=== PATIENT | male | born 1930 | race Caucasian/White ===

== ENCOUNTER 2016-09-24 12:07 | Inpatient (IN) | payer OTHER, BC ==
[2016-09-24] VITALS (8 sets, daily range): BP systolic 85–189; BP diastolic 50–71
[~2016-09-24] VITALS: Ht 172.7 cm; Wt 94.2 kg
[2016-09-24 13:17] LABS: HEMATOCRIT 32.8 % (38.0-50.0); MCH 33.1 PG (29.0-34.0); MCHC 32.3 G/DL (30.0-36.0); MCV 102.5 FL (86-99); MEAN PLAT.VOLUME 11.7 uM^3 (9.0-12.4); PLATELET COUNT 107 K/uL (156-360); RBC DIS.WIDTH-CV 15.9 % (11.8-14.6); WHITE BLOOD COUNT 6.8 K/uL (4.1-10.2)
[2016-09-24 13:20] LABS: CHLORIDE 115 mEq/L (99-109); POTASSIUM 4.8 mEq/L (3.7-5.4); SODIUM 144 mEq/L (136-147)
[2016-09-24 13:22] LABS: GLUCOSE 130 mg/dL (70-99)
[2016-09-24 13:23] LABS: ANION GAP 8 MEQ/L (2-14)
[2016-09-24 13:24] LABS: PROTHROMBIN TIME 10.3 (9.2-11.2); PTT 25.4 (25-32)
[2016-09-24 13:26] LABS: GFR ESTIMATE (CALCULATED) 38 mL/min/
[2016-09-24 13:27] LABS: UREA NITROGEN (BUN) 46 mg/dL (9-23)
[2016-09-24] MEDS ORDERED: LEVO-T50 MCG PO (15:50)
[2016-09-24] MEDS ORDERED: LOW DOSE ASPIRI81 M1 PO (16:05)
[2016-09-24] MEDS ORDERED: LIPITOR80 MG PO (16:06)
[2016-09-24] MEDS ORDERED: TOPROL XL25 MG PO (16:06)
[2016-09-24] MEDS ORDERED: LASIX20 MG PO (16:07)
[2016-09-24] MEDS ORDERED: K-DUR10 MEQ PO (16:09)
[2016-09-24] MEDS ORDERED: HYTRIN5 MG PO (16:09)
[2016-09-24] MEDS ORDERED: PROSCAR5 MG PO (16:10)
[2016-09-24] MEDS ORDERED: REMERON15 M2 PO (16:10)
[2016-09-24] MEDS ORDERED: XALATAN2.5 ML BOTH EYES (16:11)
[2016-09-24] MEDS ORDERED: PROTONIX40 MG PO (16:11)
[2016-09-24] MEDS ORDERED: DITROPAN XL10 MG PO (16:11)
[2016-09-24] MEDS ORDERED: DAILY VALUE1 EACH PO (16:12)
[2016-09-24] MEDS ORDERED: ALLOPURINOL300 MG PO (16:12)
[2016-09-24 18:48] LABS: HEMATOCRIT 32.8 % (38.0-50.0); MCV 104.1 FL (86-99)
[2016-09-24 19:15] LABS: TROP-I INTERPRETATION NEGATIVE
[2016-09-24 19:25] LABS: TROPONIN-I 0.01 ng/mL (0.0-0.30)
[2016-09-24 19:49] LABS: ADD MIUA? YES; BILIRUBIN NEGATIVE; BLOOD NEGATIVE; COLOR YELLOW ((YELLOW)); GLUCOSE (STRIP) NEGATIVE; KETONES NEGATIVE; LEUKOCYTES NEGATIVE; NITRITE NEGATIVE; PROTEIN (STRIP) 100; SPECIFIC GRAVITY 1.015 (1.000-1.030); UROBILINOGEN 0.2 MG/DL (0.2-1.0)
[2016-09-24 19:56] LABS: BACTERIA NONE SEEN /HPF; EPITHELIAL CELLS RARE /HPF; HYALINE CASTS 0-5 /LPF; MUCUS TRACE /LPF; RED BLOOD CELLS 0-5 /HPF (0-5); WHITE BLOOD CELLS 0-5 /HPF (0-5)
[2016-09-24 22:18] LABS: METH RESISTANT S AUREUS PCR NEGATIVE (NEGATIVE)
[2016-09-24 22:32] LABS: PROBE CHECK PASS; SPECIMEN PROCESSING CONTROL PASS
[2016-09-24 23:43] LABS: POINT-OF-CARE METER ID UU14162636
[2016-09-25] VITALS (13 sets, daily range): BP systolic 102–172; BP diastolic 37–52
[2016-09-25 01:32] LABS: TROP-I INTERPRETATION NEGATIVE; TROPONIN-I 0.04 ng/mL (0.0-0.30)
[2016-09-25 06:04] LABS: POINT-OF-CARE METER ID UU14162636
[2016-09-25 06:48] LABS: TROP-I INTERPRETATION NEGATIVE; TROPONIN-I 0.06 ng/mL (0.0-0.30)
[2016-09-25 06:49] LABS: INTER. NORMALIZED RATIO 1.1; PROTHROMBIN TIME 11.4 (9.2-11.2); PTT 30.3 (25-32)
[2016-09-25 07:00] LABS: HEMATOCRIT 29.9 % (38.0-50.0); MCH 34.9 PG (29.0-34.0); MCHC 33.1 G/DL (30.0-36.0); MCV 105.3 FL (86-99); RBC DIS.WIDTH-CV 15.8 % (11.8-14.6); RED BLOOD COUNT 2.84 M/uL (4.00-5.50)
[2016-09-25 07:07] LABS: MEAN PLAT.VOLUME 10.5 uM^3 (9.0-12.4); PLAT.SUFFICIENCY DECREASED; PLATELET COUNT 74 K/uL (156-360)
[2016-09-25 07:13] LABS: ANION GAP 6 MEQ/L (2-14); CHLORIDE 117 MEQ/L (99-109); GFR ESTIMATE (CALCULATED) 41 mL/min/; POTASSIUM 4.4 MEQ/L (3.7-5.4); SAMPLE HEMOLYSIS CHECK 0; SAMPLE ICTERIC CHECK 0; SAMPLE LIPEMIA CHECK 0; SODIUM 145 MEQ/L (136-147); UREA NITROGEN (BUN) 40 mg/dL (9-23)
[2016-09-25 07:15] LABS: GLUCOSE 94 mg/dL (70-99)
[2016-09-25 12:08] LABS: POINT-OF-CARE METER ID UU14162636
[2016-09-25 18:11] LABS: POINT-OF-CARE METER ID UU14174217
[2016-09-26 01:00] LABS: POINT-OF-CARE METER ID UU13113675
[2016-09-26 04:05] VITALS: BP 141/65
[2016-09-26 06:10] VITALS: BP 105/78
[2016-09-26 07:06] LABS: HEMATOCRIT 30.1 % (38.0-50.0); MCV 106.4 FL (86-99)
[2016-09-26 07:39] LABS: ANION GAP 9 MEQ/L (2-14); CHLORIDE 115 MEQ/L (99-109); POTASSIUM 5.1 MEQ/L (3.7-5.4); SAMPLE HEMOLYSIS CHECK 0; SAMPLE ICTERIC CHECK 0; SAMPLE LIPEMIA CHECK 0; SODIUM 145 MEQ/L (136-147)
[2016-09-26 07:45] LABS: GFR ESTIMATE (CALCULATED) 34 mL/min/; GLUCOSE 122 mg/dL (70-99); UREA NITROGEN (BUN) 45 mg/dL (9-23)
[2016-09-26 07:47] VITALS: BP 148/67
[2016-09-26 11:43] VITALS: BP 138/65
[2016-09-26 16:01] VITALS: BP 146/60
[2016-09-26 16:20] LABS: POINT-OF-CARE METER ID UU14188577
[2016-09-26 20:40] VITALS: BP 159/67
[2016-09-27] VITALS (7 sets, daily range): BP systolic 110–177; BP diastolic 52–69
[2016-09-27 06:57] LABS: EOSINOPHIL COUNT 0.1 K/uL (0-0.3); HEMATOCRIT 25.4 % (38.0-50.0); IMMATURE GRANULOCYTE (%) 0.6 % (0.0-0.7); INSTRUMENT ABS NEUTROPHIL CT 5.8 K/uL; LYMPHOCYTE COUNT 0.5 K/uL (1.0-2.8); MCH 34.4 PG (29.0-34.0); MCHC 33.1 G/DL (30.0-36.0); MCV 104.1 FL (86-99); MEAN PLAT.VOLUME 11.7 uM^3 (9.0-12.4); MONOCYTE (%) 7.1 % (3-12); MONOCYTE COUNT 0.5 K/uL (0-0.8); NEUTROPHIL (%) 83.8 % (45-76); NEUTROPHIL COUNT 5.8 K/uL (1.8-6.4); PLATELET COUNT 65 K/uL (156-360); RBC DIS.WIDTH-CV 15.9 % (11.8-14.6); RED BLOOD COUNT 2.44 M/uL (4.00-5.50); WHITE BLOOD COUNT 6.9 K/uL (4.1-10.2)
[2016-09-27 07:16] LABS: ANION GAP 8 MEQ/L (2-14); CHLORIDE 116 MEQ/L (99-109); GFR ESTIMATE (CALCULATED) 36 mL/min/; GLUCOSE 120 mg/dL (70-99); POTASSIUM 4.1 MEQ/L (3.7-5.4); SAMPLE HEMOLYSIS CHECK 0; SAMPLE ICTERIC CHECK 0; SAMPLE LIPEMIA CHECK 0; SODIUM 143 MEQ/L (136-147); UREA NITROGEN (BUN) 45 mg/dL (9-23)
[2016-09-27 12:28] LABS: POINT-OF-CARE METER ID UU14188577
[2016-09-28 03:37] LABS: BASE EXCESS -3.9 mEq/L (-3 to +3); BICARBONATE 20.4 mEq/L (22-26); CARBOXY HGB 1.7 % (0-5); METHEMOGLOBIN 1.4 % (0-1.5); PCO2 33 mm Hg (35-45); PO2 78 mm Hg (80-100)
[2016-09-28 03:38] LABS: COMMENTS - BLOOD GASES C+; DEVICE HFNC; O2 FLOW 15 L/MIN; SITE LR; TOTAL RESP RATE 16 resp/min
[2016-09-28 03:53] VITALS: BP 133/58
[2016-09-28 06:20] LABS: POINT-OF-CARE METER ID UU14188577
[2016-09-28 07:23] LABS: EOSINOPHIL (%) 2.8 % (0-5); EOSINOPHIL COUNT 0.2 K/uL (0-0.3); HEMATOCRIT 26.1 % (38.0-50.0); IMMATURE GRANULOCYTE (%) 0.6 % (0.0-0.7); INSTRUMENT ABS NEUTROPHIL CT 5.5 K/uL; LYMPHOCYTE COUNT 0.4 K/uL (1.0-2.8); MCH 33.5 PG (29.0-34.0); MCHC 32.2 G/DL (30.0-36.0); MEAN PLAT.VOLUME 12.5 uM^3 (9.0-12.4); MONOCYTE (%) 7.6 % (3-12); MONOCYTE COUNT 0.5 K/uL (0-0.8); NEUTROPHIL (%) 82.5 % (45-76); NEUTROPHIL COUNT 5.5 K/uL (1.8-6.4); PLATELET COUNT 76 K/uL (156-360); RBC DIS.WIDTH-CV 16.1 % (11.8-14.6); RBC DIS.WIDTH-SD 61.6 % (39-53); RED BLOOD COUNT 2.51 M/uL (4.00-5.50); WHITE BLOOD COUNT 6.7 K/uL (4.1-10.2)
[2016-09-28 07:47] VITALS: BP 133/58
[2016-09-28 07:56] LABS: ALKALINE PHOSPHATASE 60 IU/L (3-129); ANION GAP 11 MEQ/L (2-14); CHLORIDE 118 MEQ/L (99-109); GFR ESTIMATE (CALCULATED) 36 mL/min/; GLUCOSE 108 mg/dL (70-99); SAMPLE HEMOLYSIS CHECK 0; SAMPLE ICTERIC CHECK 0; SAMPLE LIPEMIA CHECK 0; SODIUM 147 MEQ/L (136-147); TOTAL BILIRUBIN 0.6 MG/DL (0.0-1.0); UREA NITROGEN (BUN) 40 mg/dL (9-23)
[2016-09-28 11:31] VITALS: BP 160/69
[2016-09-28 13:20] LABS: ADD MIUA? YES; BILIRUBIN NEGATIVE; BLOOD LARGE; COLOR YELLOW ((YELLOW)); GLUCOSE (STRIP) NEGATIVE; KETONES NEGATIVE; LEUKOCYTES NEGATIVE; NITRITE NEGATIVE; PROTEIN (STRIP) 100; SPECIFIC GRAVITY 1.017 (1.000-1.030); UROBILINOGEN 0.2 MG/DL (0.2-1.0)
[2016-09-28 13:35] LABS: BACTERIA 1+ /HPF; CASTS PRESENT /LPF; COARSE GRANULAR CASTS 0-5 /LPF; EPITHELIAL CELLS 1+ /HPF; MUCUS NONE SEEN /LPF; UCUL ADDED? NO; WHITE BLOOD CELLS 0-5 /HPF (0-5)
[2016-09-28 16:09] LABS: POINT-OF-CARE METER ID UU14149397
[2016-09-28 19:35] VITALS: BP 173/78
[2016-09-28 23:36] VITALS: BP 172/80
[2016-09-29 03:53] VITALS: BP 177/68
[2016-09-29 07:34] LABS: EOSINOPHIL (%) 1.2 % (0-5); EOSINOPHIL COUNT 0.1 K/uL (0-0.3); HEMATOCRIT 25.1 % (38.0-50.0); IMMATURE GRANULOCYTE (%) 0.6 % (0.0-0.7); INSTRUMENT ABS NEUTROPHIL CT 5.6 K/uL; LYMPHOCYTE COUNT 0.4 K/uL (1.0-2.8); MCH 33.6 PG (29.0-34.0); MCHC 32.3 G/DL (30.0-36.0); MCV 104.1 FL (86-99); MONOCYTE (%) 8.3 % (3-12); MONOCYTE COUNT 0.6 K/uL (0-0.8); NEUTROPHIL (%) 84.1 % (45-76); NEUTROPHIL COUNT 5.6 K/uL (1.8-6.4); PLATELET COUNT 75 K/uL (156-360); RBC DIS.WIDTH-CV 15.9 % (11.8-14.6); RBC DIS.WIDTH-SD 61.4 % (39-53); RED BLOOD COUNT 2.41 M/uL (4.00-5.50); WHITE BLOOD COUNT 6.6 K/uL (4.1-10.2)
[2016-09-29 07:42] VITALS: BP 167/72
[2016-09-29 08:00] LABS: ALKALINE PHOSPHATASE 75 IU/L (3-129); ANION GAP 10 MEQ/L (2-14); CHLORIDE 120 MEQ/L (99-109); GFR ESTIMATE (CALCULATED) 36 mL/min/; GLUCOSE 96 mg/dL (70-99); POTASSIUM 3.9 MEQ/L (3.7-5.4); SAMPLE HEMOLYSIS CHECK 0; SAMPLE ICTERIC CHECK 0; SAMPLE LIPEMIA CHECK 0; SODIUM 150 MEQ/L (136-147); TOTAL BILIRUBIN 0.6 MG/DL (0.0-1.0); UREA NITROGEN (BUN) 46 mg/dL (9-23)
[2016-09-29 16:19] VITALS: BP 142/62
[2016-09-29 19:45] VITALS: BP 160/73
[2016-09-29 23:15] VITALS: BP 164/74
[2016-09-30] VITALS (7 sets, daily range): BP systolic 132–194; BP diastolic 62–82
[2016-09-30 06:37] LABS: POINT-OF-CARE METER ID UU14188577
[2016-09-30 07:08] LABS: EOSINOPHIL (%) 2.5 % (0-5); EOSINOPHIL COUNT 0.2 K/uL (0-0.3); HEMATOCRIT 25.5 % (38.0-50.0); IMMATURE GRANULOCYTE (%) 0.7 % (0.0-0.7); IMMATURE GRANULOCYTE COUNT 0.1 K/uL; INSTRUMENT ABS NEUTROPHIL CT 6.1 K/uL; LYMPHOCYTE COUNT 0.4 K/uL (1.0-2.8); MCH 33.6 PG (29.0-34.0); MCHC 32.5 G/DL (30.0-36.0); MCV 103.2 FL (86-99); MONOCYTE COUNT 0.4 K/uL (0-0.8); NEUTROPHIL (%) 85.2 % (45-76); NEUTROPHIL COUNT 6.1 K/uL (1.8-6.4); PLATELET COUNT 96 K/uL (156-360); RBC DIS.WIDTH-CV 15.9 % (11.8-14.6); RBC DIS.WIDTH-SD 60.4 % (39-53); RED BLOOD COUNT 2.47 M/uL (4.00-5.50); WHITE BLOOD COUNT 7.1 K/uL (4.1-10.2)
[2016-09-30 07:38] LABS: ALKALINE PHOSPHATASE 91 IU/L (3-129); ANION GAP 10 MEQ/L (2-14); CHLORIDE 119 MEQ/L (99-109); GFR ESTIMATE (CALCULATED) 41 mL/min/; GLUCOSE 116 mg/dL (70-99); POTASSIUM 3.8 MEQ/L (3.7-5.4); SAMPLE HEMOLYSIS CHECK 0; SAMPLE ICTERIC CHECK 0; SAMPLE LIPEMIA CHECK 0; SODIUM 151 MEQ/L (136-147); UREA NITROGEN (BUN) 46 mg/dL (9-23)
[2016-09-30 07:48] LABS: TOTAL BILIRUBIN 0.8 MG/DL (0.0-1.0)
[2016-09-30 11:57] LABS: POINT-OF-CARE METER ID UU14188577
[2016-09-30 14:46] LABS: ANION GAP 9 MEQ/L (2-14); CHLORIDE 119 MEQ/L (99-109); GFR ESTIMATE (CALCULATED) 44 mL/min/; GLUCOSE 160 mg/dL (70-99); POTASSIUM 3.3 MEQ/L (3.7-5.4); SAMPLE HEMOLYSIS CHECK 0; SAMPLE ICTERIC CHECK 0; SAMPLE LIPEMIA CHECK 0; SODIUM 148 MEQ/L (136-147); UREA NITROGEN (BUN) 47 mg/dL (9-23)
[2016-09-30 17:00] LABS: POINT-OF-CARE METER ID UU14149397
[2016-10-01 00:11] LABS: POINT-OF-CARE METER ID UU14149397
[2016-10-01 03:20] VITALS: BP 140/59
[2016-10-01 06:44] LABS: POINT-OF-CARE METER ID UU14149397
[2016-10-01 07:25] LABS: MAGNESIUM 1.8 mg/dl (1.3-2.7)
[2016-10-01 08:08] VITALS: BP 158/70
[2016-10-01 10:35] LABS: HEMATOCRIT 25.9 % (38.0-50.0); MCH 33.3 PG (29.0-34.0); MEAN PLAT.VOLUME 11.9 uM^3 (9.0-12.4); PLATELET COUNT 104 K/uL (156-360); RBC DIS.WIDTH-SD 61.8 % (39-53); RED BLOOD COUNT 2.49 M/uL (4.00-5.50); WHITE BLOOD COUNT 7.8 K/uL (4.1-10.2)
[2016-10-01 11:03] LABS: ANION GAP 10 MEQ/L (2-14); CHLORIDE 118 MEQ/L (99-109); GFR ESTIMATE (CALCULATED) 44 mL/min/; GLUCOSE 129 mg/dL (70-99); POTASSIUM 3.4 MEQ/L (3.7-5.4); SODIUM 149 MEQ/L (136-147); UREA NITROGEN (BUN) 41 mg/dL (9-23)
[2016-10-01 15:27] VITALS: BP 171/72
[2016-10-01 17:21] LABS: POINT-OF-CARE METER ID UU14149397
[2016-10-01 19:51] VITALS: BP 140/65
[2016-10-02 00:03] VITALS: BP 167/88
[2016-10-02 07:55] VITALS: BP 194/81
[2016-10-02 07:58] LABS: ANISOCYTOSIS 1+; BURR CELLS 1+; MACROCYTES 1+; PLAT.SUFFICIENCY DECREASED; POIKILOCYTOSIS 3+
[2016-10-02 09:02] LABS: POINT-OF-CARE METER ID UU14149397
[2016-10-02 10:14] LABS: HEMATOCRIT 25.5 % (38.0-50.0); MCH 33.6 PG (29.0-34.0); MCHC 33.3 G/DL (30.0-36.0); MCV 100.8 FL (86-99); MEAN PLAT.VOLUME 11.6 uM^3 (9.0-12.4); PLATELET COUNT 103 K/uL (156-360); RBC DIS.WIDTH-CV 15.7 % (11.8-14.6); RBC DIS.WIDTH-SD 58.3 % (39-53); RED BLOOD COUNT 2.53 M/uL (4.00-5.50)
[2016-10-02 10:39] VITALS: BP 148/82
[2016-10-02 10:46] LABS: ANION GAP 10 MEQ/L (2-14); CHLORIDE 114 MEQ/L (99-109); GFR ESTIMATE (CALCULATED) 44 mL/min/; GLUCOSE 144 mg/dL (70-99); POTASSIUM 3.3 MEQ/L (3.7-5.4); SAMPLE HEMOLYSIS CHECK 0; SAMPLE ICTERIC CHECK 0; SAMPLE LIPEMIA CHECK 0; SODIUM 144 MEQ/L (136-147); UREA NITROGEN (BUN) 39 mg/dL (9-23)
[2016-10-02 18:13] VITALS: BP 159/72
[2016-10-02 20:00] VITALS: BP 186/84
[2016-10-03] VITALS: BP 194/77
[2016-10-03 03:59] VITALS: BP 154/67
[2016-10-03 06:38] LABS: EOSINOPHIL (%) 4.8 % (0-5); EOSINOPHIL COUNT 0.3 K/uL (0-0.3); HEMATOCRIT 25.4 % (38.0-50.0); IMMATURE GRANULOCYTE (%) 4.1 % (0.0-0.7); IMMATURE GRANULOCYTE COUNT 0.3 K/uL; INSTRUMENT ABS NEUTROPHIL CT 5.3 K/uL; LYMPHOCYTE COUNT 0.8 K/uL (1.0-2.8); MCH 33.5 PG (29.0-34.0); MCHC 32.7 G/DL (30.0-36.0); MCV 102.4 FL (86-99); MEAN PLAT.VOLUME 11.6 uM^3 (9.0-12.4); MONOCYTE (%) 6.5 % (3-12); MONOCYTE COUNT 0.5 K/uL (0-0.8); NEUTROPHIL COUNT 5.3 K/uL (1.8-6.4); PLATELET COUNT 118 K/uL (156-360); RBC DIS.WIDTH-CV 15.7 % (11.8-14.6); RBC DIS.WIDTH-SD 58.6 % (39-53); RED BLOOD COUNT 2.48 M/uL (4.00-5.50); WHITE BLOOD COUNT 7.1 K/uL (4.1-10.2)
[2016-10-03 07:05] LABS: ALKALINE PHOSPHATASE 74 IU/L (3-129); ANION GAP 10 MEQ/L (2-14); CHLORIDE 113 MEQ/L (99-109); GFR ESTIMATE (CALCULATED) 41 mL/min/; GLUCOSE 127 mg/dL (70-99); POTASSIUM 3.5 MEQ/L (3.7-5.4); SAMPLE HEMOLYSIS CHECK 0; SAMPLE ICTERIC CHECK 0; SAMPLE LIPEMIA CHECK 0; SODIUM 143 MEQ/L (136-147); TOTAL BILIRUBIN 0.7 MG/DL (0.0-1.0); UREA NITROGEN (BUN) 38 mg/dL (9-23)
[2016-10-03 07:11] LABS: POINT-OF-CARE METER ID UU14188577
[2016-10-03 07:45] VITALS: BP 190/86
[2016-10-03 10:42] VITALS: BP 186/72
[2016-10-03 12:41] LABS: POINT-OF-CARE METER ID UU14188577
[2016-10-03 16:36] LABS: POINT-OF-CARE METER ID UU14188577
[2016-10-03 19:43] VITALS: BP 155/67
[2016-10-03 23:33] VITALS: BP 178/71
[2016-10-04 05:32] LABS: EOSINOPHIL (%) 5.3 % (0-5); EOSINOPHIL COUNT 0.4 K/uL (0-0.3); HEMATOCRIT 25.3 % (38.0-50.0); IMMATURE GRANULOCYTE (%) 3.8 % (0.0-0.7); IMMATURE GRANULOCYTE COUNT 0.3 K/uL; INSTRUMENT ABS NEUTROPHIL CT 5.3 K/uL; LYMPHOCYTE COUNT 0.7 K/uL (1.0-2.8); MCH 34.3 PG (29.0-34.0); MCHC 32.4 G/DL (30.0-36.0); MCV 105.9 FL (86-99); MONOCYTE (%) 6.9 % (3-12); MONOCYTE COUNT 0.5 K/uL (0-0.8); NEUTROPHIL (%) 73.7 % (45-76); NEUTROPHIL COUNT 5.3 K/uL (1.8-6.4); NRBC (%) 0.4 /100 WBC (0-0); PLATELET COUNT 122 K/uL (156-360); RBC DIS.WIDTH-CV 15.8 % (11.8-14.6); RBC DIS.WIDTH-SD 60.2 % (39-53); RED BLOOD COUNT 2.39 M/uL (4.00-5.50); WHITE BLOOD COUNT 7.2 K/uL (4.1-10.2)
[2016-10-04 05:49] LABS: TROP-I INTERPRETATION NEGATIVE; TROPONIN-I 0.08 ng/mL (0.0-0.30)
[2016-10-04 05:59] LABS: ALKALINE PHOSPHATASE 76 IU/L (3-129); ANION GAP 10 MEQ/L (2-14); CHLORIDE 115 MEQ/L (99-109); GFR ESTIMATE (CALCULATED) 41 mL/min/; GLUCOSE 120 mg/dL (70-99); POTASSIUM 3.6 MEQ/L (3.7-5.4); SAMPLE HEMOLYSIS CHECK 0; SAMPLE ICTERIC CHECK 0; SAMPLE LIPEMIA CHECK 0; SODIUM 142 MEQ/L (136-147); TOTAL BILIRUBIN 0.6 MG/DL (0.0-1.0); UREA NITROGEN (BUN) 36 mg/dL (9-23)
[2016-10-04 08:02] VITALS: BP 162/80
[2016-10-04 11:50] VITALS: BP 167/83
[2016-10-04 16:06] VITALS: BP 153/67
[2016-10-04 19:40] VITALS: BP 195/80
[2016-10-04 21:47] LABS: POINT-OF-CARE METER ID UU14149397
[2016-10-04 23:38] VITALS: BP 183/72
[2016-10-05 04:08] VITALS: BP 184/88
[2016-10-05 07:31] VITALS: BP 148/76
[2016-10-05 08:45] LABS: POINT-OF-CARE METER ID UU14149397
[2016-10-05 10:43] VITALS: BP 158/65
[2016-10-05 12:25] LABS: POINT-OF-CARE METER ID UU14188577
[2016-10-05 15:50] VITALS: BP 136/60
[2016-10-05 17:04] LABS: POINT-OF-CARE METER ID UU14188577
[2016-10-05 19:55] VITALS: BP 172/60
[2016-10-05 21:18] LABS: POINT-OF-CARE METER ID UU14188577; POINT-OF-CARE USER ID AHSUCEG
[2016-10-06 00:05] VITALS: BP 145/65
[2016-10-06 03:25] VITALS: BP 143/73
[2016-10-06 07:10] VITALS: BP 155/67
[2016-10-06 13:33] LABS: HEMATOCRIT 23.9 % (38.0-50.0); MCH 33.9 PG (29.0-34.0); MCHC 32.6 G/DL (30.0-36.0); MCV 103.9 FL (86-99); MEAN PLAT.VOLUME 10.9 uM^3 (9.0-12.4); PLATELET COUNT 151 K/uL (156-360); RBC DIS.WIDTH-CV 16.5 % (11.8-14.6); RBC DIS.WIDTH-SD 62.3 % (39-53); WHITE BLOOD COUNT 10.2 K/uL (4.1-10.2)
[2016-10-06 13:47] LABS: ALKALINE PHOSPHATASE 72 IU/L (3-129); ANION GAP 6 MEQ/L (2-14); CHLORIDE 115 MEQ/L (99-109); GFR ESTIMATE (CALCULATED) 44 mL/min/; GLUCOSE 113 mg/dL (70-99); SAMPLE HEMOLYSIS CHECK 0; SAMPLE ICTERIC CHECK 0; SAMPLE LIPEMIA CHECK 0; SODIUM 142 MEQ/L (136-147); TOTAL BILIRUBIN 0.5 MG/DL (0.0-1.0); UREA NITROGEN (BUN) 33 mg/dL (9-23)
[2016-10-06 13:48] LABS: POTASSIUM 4.6 MEQ/L (3.7-5.4)
[2016-10-06] MEDS ORDERED: DUONEB 2.5-0.5 M3 ML AEROSOL (15:25)
[2016-10-06] MEDS ORDERED: AMLODIPINE BESYL5 MG PO (15:25)
[2016-10-06] MEDS ORDERED: TYLENOL REGULA325 MG PO (15:25)
[2016-10-06] MEDS ORDERED: POLYETHYLENE GL17 GM PO (15:26)
[2016-10-06] MEDS ORDERED: FUROSEMIDE20 MG PO (15:26)
[2016-10-06] MEDS ORDERED: SENNA PLUS TAB1 EACH PO (15:26)
[2016-10-06] MEDS ORDERED: ZINC OXIDE56.7 GM TP (15:27)
[2016-10-06] MEDS ORDERED: NOVOLOG PE100 UNITS/ SC (15:27)
[2016-10-06] MEDS ORDERED: LOVENOX30 MG/0.3 SC (15:48)
[2016-10-06 16:15] VITALS: BP 155/67
[2016-10-06 16:34] LABS: POINT-OF-CARE METER ID UU14188577
== END 2016-10-06 19:32 | DRG 469 ==
LOC: EME → EDBD 12:07 → 4WEST 15:12 → 3EAST 15:12 → EDOF 15:12 → 3EAST 17:28 → 4WEST 19:18 → 3EAST 09-26 02:23
PROVIDERS: Emergency Medicine; Hospitalist; Internal Medicine; Obstetrics & Gynecology; Orthopaedic Surgery Sports Medicine; Specialist; Student in an Organized Health Care Education/Training Program
PROC: 0SRR0JA Replacement of Right Hip Joint, Femoral Surface with Synthetic Substitute, Uncemented, Open Approach (ICD-10-PCS; principal; 2016-09-25)
DX: S72.001A Fracture of unspecified part of neck of right femur, initial encounter for closed fracture (principal); W10.9XXA Fall (on) (from) unspecified stairs and steps, initial encounter; Y92.008 Other place in unspecified non-institutional (private) residence as the place of occurrence of the external cause; J96.01 Acute respiratory failure with hypoxia; E87.0 Hyperosmolality and hypernatremia; F05 Delirium due to known physiological condition; L89.619 Pressure ulcer of right heel, unspecified stage; I48.0 Paroxysmal atrial fibrillation; J98.11 Atelectasis; J69.0 Pneumonitis due to inhalation of food and vomit; R13.10 Dysphagia, unspecified; L08.9 Local infection of the skin and subcutaneous tissue, unspecified; E87.6 Hypokalemia; I95.9 Hypotension, unspecified; M10.9 Gout, unspecified; E03.9 Hypothyroidism, unspecified; K21.9 Gastro-esophageal reflux disease without esophagitis; I13.0 Hypertensive heart and chronic kidney disease with heart failure and stage 1 through stage 4 chronic kidney disease, or unspecified chronic kidney disease; I50.9 Heart failure, unspecified; E11.22 Type 2 diabetes mellitus with diabetic chronic kidney disease; N18.3 Chronic kidney disease, stage 3 (moderate); E78.5 Hyperlipidemia, unspecified; F01.50 Vascular dementia, unspecified severity, without behavioral disturbance, psychotic disturbance, mood disturbance, and anxiety; F32.9 Major depressive disorder, single episode, unspecified; G47.33 Obstructive sleep apnea (adult) (pediatric); I25.10 Atherosclerotic heart disease of native coronary artery without angina pectoris; N32.81 Overactive bladder; N40.1 Benign prostatic hyperplasia with lower urinary tract symptoms; R33.8 Other retention of urine; R91.1 Solitary pulmonary nodule; E66.9 Obesity, unspecified; J44.9 Chronic obstructive pulmonary disease, unspecified; E78.00 Pure hypercholesterolemia, unspecified; D53.9 Nutritional anemia, unspecified; D69.6 Thrombocytopenia, unspecified; Z79.82 Long term (current) use of aspirin; Z68.31 Body mass index [BMI] 31.0-31.9, adult; Z91.19 Patient's noncompliance with other medical treatment and regimen; Z95.1 Presence of aortocoronary bypass graft; Z88.2 Allergy status to sulfonamides; Z86.73 Personal history of transient ischemic attack (TIA), and cerebral infarction without residual deficits; Z87.891 Personal history of nicotine dependence
CPT/HCPCS: 36600; 70450; 71010; 71250; 72170; 73502; 74230; 76770; 78582; 80048; 80048 91; 80053; 80202; 81003; 82306; 82607; 82668 90; 82746; 82803; 82948; 83735; 84100; 84443; 84484; 85007; 85014; 85018; 85025; 85027; 85060; 85610; 85730; 86900; 86901; 86920; 87641; 92526 GN; 92610 GN; 92611 GN; 93005; 93306; 94010; 94640; 94640 76; 94667; 94668; 94799; 97530 GO; 97530 GP; 99202; 99281; 99285; A9540; A9567; J0131; J0295; J0690; J1170; J1644; J1650; J1815; J1885; J1940; J2060; J2270; J2543; J3010; J3370; J7030; J7050; J7070; S0028

== ENCOUNTER 2016-10-17 04:06 | Emergency (ER) | payer OTHER, BC ==
[~2016-10-17] VITALS: Ht 172.7 cm; Wt 107.2 kg
[~2016-10-17 04:06] MED LIST: ALLOPURINOL300 MG PO; AMLODIPINE BESYL5 MG PO; DAILY VALUE1 EACH PO; DITROPAN XL10 MG PO; DUONEB 2.5-0.5 M3 ML AEROSOL; FUROSEMIDE20 MG PO; HYTRIN5 MG PO; K-DUR10 MEQ PO; LASIX20 MG PO; LEVO-T50 MCG PO; LIPITOR80 MG PO; LOVENOX30 MG/0.3 SC; LOW DOSE ASPIRI81 M1 PO; NOVOLOG PE100 UNITS/ SC; POLYETHYLENE GL17 GM PO; PROSCAR5 MG PO; PROTONIX40 MG PO; REMERON15 M2 PO; SENNA PLUS TAB1 EACH PO; TOPROL XL25 MG PO; TYLENOL REGULA325 MG PO; XALATAN2.5 ML BOTH EYES; ZINC OXIDE56.7 GM TP
[2016-10-17 08:06] VITALS: BP 167/87
== END 2016-10-17 08:16 ==
LOC: EME → EDBD 04:06 → EME 04:06
DX: Z04.3 Encounter for examination and observation following other accident (principal); M25.551 Pain in right hip; Z96.641 Presence of right artificial hip joint; F03.90 Unspecified dementia, unspecified severity, without behavioral disturbance, psychotic disturbance, mood disturbance, and anxiety; I10 Essential (primary) hypertension; E11.9 Type 2 diabetes mellitus without complications; Z79.4 Long term (current) use of insulin; E78.5 Hyperlipidemia, unspecified; K21.9 Gastro-esophageal reflux disease without esophagitis; Z86.73 Personal history of transient ischemic attack (TIA), and cerebral infarction without residual deficits; M10.9 Gout, unspecified; Z95.1 Presence of aortocoronary bypass graft; Z87.891 Personal history of nicotine dependence
CPT/HCPCS: 70450; 73502; 73552; 99281; 99285

== ENCOUNTER 2016-10-28 12:26 | Inpatient (IN) | payer OTHER, BC ==
[~2016-10-28] VITALS: Ht 172.7 cm; Wt 95.4 kg
[2016-10-28 13:36] LABS: EOSINOPHIL (%) 2.6 % (0-5); EOSINOPHIL COUNT 0.1 K/uL (0-0.3); HEMATOCRIT 19.8 % (38.0-50.0); IMMATURE GRANULOCYTE (%) 1.5 % (0.0-0.7); IMMATURE GRANULOCYTE COUNT 0.1 K/uL; INSTRUMENT ABS NEUTROPHIL CT 3.8 K/uL; LYMPHOCYTE COUNT 0.8 K/uL (1.0-2.8); MCH 32.1 PG (29.0-34.0); MCHC 30.8 G/DL (30.0-36.0); MCV 104.2 FL (86-99); MEAN PLAT.VOLUME 11.3 uM^3 (9.0-12.4); MONOCYTE (%) 10.6 % (3-12); MONOCYTE COUNT 0.6 K/uL (0-0.8); NEUTROPHIL (%) 70.6 % (45-76); NEUTROPHIL COUNT 3.8 K/uL (1.8-6.4); PLATELET COUNT 153 K/uL (156-360); RBC DIS.WIDTH-CV 15.9 % (11.8-14.6); RBC DIS.WIDTH-SD 60.3 % (39-53); WHITE BLOOD COUNT 5.4 K/uL (4.1-10.2)
[2016-10-28 13:39] LABS: CHLORIDE 114 mEq/L (99-109); INTER. NORMALIZED RATIO 1.1; POTASSIUM 4.6 mEq/L (3.7-5.4); SODIUM 145 mEq/L (136-147)
[2016-10-28 13:40] LABS: GLUCOSE 113 mg/dL (70-99)
[2016-10-28 13:42] LABS: ANION GAP 9 MEQ/L (2-14)
[2016-10-28 13:44] LABS: GFR ESTIMATE (CALCULATED) 38 mL/min/
[2016-10-28 13:45] LABS: UREA NITROGEN (BUN) 60 mg/dL (9-23)
[2016-10-28] MEDS ORDERED: AMLODIPINE BESY10 MG PO (15:40)
[2016-10-28] MEDS ORDERED: MIRTAZAPINE7.5 MG PO (15:42)
[2016-10-28] MEDS ORDERED: MILK OF MAGN PO (15:43)
[2016-10-28] MEDS ORDERED: DULCOLAX10 MG PR (15:44)
[2016-10-28] MEDS ORDERED: FLEET ENEMA-AD118 ML PR (15:45)
[2016-10-28] MEDS ORDERED: SYNTHROID75 MCG PO (15:49)
[2016-10-28] MEDS ORDERED: GABAPENTIN100 MG PO (15:49)
[2016-10-28 15:50] VITALS: BP 152/46
[2016-10-28] MEDS ORDERED: ASCORBIC ACID500 MG PO (15:50)
[2016-10-28] MEDS ORDERED: FERROUS SULFAT325 MG PO (15:50)
[2016-10-28] MEDS ORDERED: COLACE100 MG PO (15:51)
[2016-10-28] MEDS ORDERED: TYLENOL REGULA325 MG PO (15:52)
[2016-10-28] MEDS ORDERED: TRAMADOL HCL50 MG PO (15:52)
[2016-10-28] MEDS ORDERED: GLUTOSE 1537.5 GM PO (15:55)
[2016-10-28] MEDS ORDERED: ZINC OXIDE56.7 GM TP (15:55)
[2016-10-28 16:15] VITALS: BP 128/50
[2016-10-28 17:14] VITALS: BP 104/51
[2016-10-28 20:50] VITALS: BP 130/64; BP 134/59
[2016-10-28 21:42] LABS: POINT-OF-CARE METER ID UU14149397
[2016-10-28 21:50] VITALS: BP 138/62
[2016-10-29] VITALS (7 sets, daily range): BP systolic 121–188; BP diastolic 47–83
[2016-10-29 07:38] LABS: MCH 30.7 PG (29.0-34.0); MCHC 32.1 G/DL (30.0-36.0); MCV 95.6 FL (86-99); MEAN PLAT.VOLUME 10.6 uM^3 (9.0-12.4); PLATELET COUNT 140 K/uL (156-360); RBC DIS.WIDTH-CV 21.1 % (11.8-14.6); RBC DIS.WIDTH-SD 73.2 % (39-53); RED BLOOD COUNT 2.51 M/uL (4.00-5.50); WHITE BLOOD COUNT 5.9 K/uL (4.1-10.2)
[2016-10-29 07:56] LABS: ALKALINE PHOSPHATASE 64 IU/L (3-129); ANION GAP 9 MEQ/L (2-14); CHLORIDE 116 MEQ/L (99-109); GFR ESTIMATE (CALCULATED) 38 mL/min/; GLUCOSE 95 mg/dL (70-99); POTASSIUM 4.1 MEQ/L (3.7-5.4); SAMPLE HEMOLYSIS CHECK 0; SAMPLE ICTERIC CHECK 0; SAMPLE LIPEMIA CHECK 0; SODIUM 148 MEQ/L (136-147); TOTAL BILIRUBIN 0.5 MG/DL (0.0-1.0); UREA NITROGEN (BUN) 60 mg/dL (9-23)
[2016-10-29 16:21] LABS: POINT-OF-CARE METER ID UU14188577
[2016-10-29 22:42] LABS: POINT-OF-CARE METER ID UU14149397; POINT-OF-CARE USER ID AHSUCEG
[2016-10-30] VITALS (17 sets, daily range): BP systolic 90–178; BP diastolic 52–85
[2016-10-30 06:26] LABS: POINT-OF-CARE METER ID UU14149397
[2016-10-30 06:50] LABS: HEMATOCRIT 23.9 % (38.0-50.0); MCH 31.6 PG (29.0-34.0); MCHC 32.2 G/DL (30.0-36.0); MEAN PLAT.VOLUME 10.8 uM^3 (9.0-12.4); PLATELET COUNT 139 K/uL (156-360); RBC DIS.WIDTH-CV 20.2 % (11.8-14.6); RBC DIS.WIDTH-SD 72.3 % (39-53); RED BLOOD COUNT 2.44 M/uL (4.00-5.50); WHITE BLOOD COUNT 5.7 K/uL (4.1-10.2)
[2016-10-30 07:18] LABS: ALKALINE PHOSPHATASE 65 IU/L (3-129); ANION GAP 9 MEQ/L (2-14); CHLORIDE 111 MEQ/L (99-109); GFR ESTIMATE (CALCULATED) 41 mL/min/; GLUCOSE 89 mg/dL (70-99); POTASSIUM 4.1 MEQ/L (3.7-5.4); SAMPLE HEMOLYSIS CHECK 0; SAMPLE ICTERIC CHECK 0; SAMPLE LIPEMIA CHECK 0; SODIUM 143 MEQ/L (136-147); TOTAL BILIRUBIN 0.5 MG/DL (0.0-1.0); UREA NITROGEN (BUN) 53 mg/dL (9-23)
[2016-10-31] VITALS (7 sets, daily range): BP systolic 140–193; BP diastolic 65–77
[2016-10-31 07:10] LABS: HEMATOCRIT 30.9 % (38.0-50.0); MCHC 32.4 G/DL (30.0-36.0); MCV 95.7 FL (86-99); MEAN PLAT.VOLUME 10.9 uM^3 (9.0-12.4); PLATELET COUNT 137 K/uL (156-360); RBC DIS.WIDTH-CV 18.7 % (11.8-14.6); RBC DIS.WIDTH-SD 64.5 % (39-53); WHITE BLOOD COUNT 6.5 K/uL (4.1-10.2)
[2016-10-31 07:12] LABS: RED BLOOD COUNT 3.23 M/uL (4.00-5.50)
[2016-11-01] VITALS (8 sets, daily range): BP systolic 94–188; BP diastolic 52–81
[2016-11-01 07:04] LABS: HEMATOCRIT 30.6 % (38.0-50.0); MCH 30.4 PG (29.0-34.0); MCHC 31.4 G/DL (30.0-36.0); MCV 96.8 FL (86-99); MEAN PLAT.VOLUME 10.5 uM^3 (9.0-12.4); PLATELET COUNT 139 K/uL (156-360); RBC DIS.WIDTH-CV 18.8 % (11.8-14.6); RBC DIS.WIDTH-SD 63.6 % (39-53); RED BLOOD COUNT 3.16 M/uL (4.00-5.50); WHITE BLOOD COUNT 6.2 K/uL (4.1-10.2)
[2016-11-01 07:28] LABS: ALKALINE PHOSPHATASE 68 IU/L (3-129); ANION GAP 9 MEQ/L (2-14); CHLORIDE 114 MEQ/L (99-109); GFR ESTIMATE (CALCULATED) 44 mL/min/; GLUCOSE 126 mg/dL (70-99); POTASSIUM 3.8 MEQ/L (3.7-5.4); SAMPLE HEMOLYSIS CHECK 0; SAMPLE ICTERIC CHECK 0; SAMPLE LIPEMIA CHECK 0; SODIUM 145 MEQ/L (136-147); TOTAL BILIRUBIN 0.5 MG/DL (0.0-1.0); UREA NITROGEN (BUN) 40 mg/dL (9-23)
[2016-11-01 21:30] LABS: POINT-OF-CARE METER ID UU14149397
[2016-11-02 04:05] VITALS: BP 184/77
[2016-11-02 08:34] VITALS: BP 171/73
[2016-11-02 12:02] VITALS: BP 135/62
[2016-11-02 16:29] VITALS: BP 186/80
== END 2016-11-02 17:40 | DRG 812 ==
LOC: EME 12:26 → 3EAST 14:17 → EDOF 14:17 → 3EAST 18:05
PROVIDERS: Emergency Medicine; Internal Medicine
PROC: 30233N1 Transfusion of Nonautologous Red Blood Cells into Peripheral Vein, Percutaneous Approach (ICD-10-PCS; principal; 2016-10-28)
DX: D53.9 Nutritional anemia, unspecified (principal); E11.22 Type 2 diabetes mellitus with diabetic chronic kidney disease; D69.6 Thrombocytopenia, unspecified; F01.50 Vascular dementia, unspecified severity, without behavioral disturbance, psychotic disturbance, mood disturbance, and anxiety; N18.3 Chronic kidney disease, stage 3 (moderate); D63.1 Anemia in chronic kidney disease; E03.9 Hypothyroidism, unspecified; E78.5 Hyperlipidemia, unspecified; F32.9 Major depressive disorder, single episode, unspecified; I12.9 Hypertensive chronic kidney disease with stage 1 through stage 4 chronic kidney disease, or unspecified chronic kidney disease; I25.10 Atherosclerotic heart disease of native coronary artery without angina pectoris; I45.10 Unspecified right bundle-branch block; K21.9 Gastro-esophageal reflux disease without esophagitis; N40.1 Benign prostatic hyperplasia with lower urinary tract symptoms; M10.9 Gout, unspecified; N32.81 Overactive bladder; S72.009D Fracture of unspecified part of neck of unspecified femur, subsequent encounter for closed fracture with routine healing; Z68.31 Body mass index [BMI] 31.0-31.9, adult; Z86.73 Personal history of transient ischemic attack (TIA), and cerebral infarction without residual deficits; Z87.891 Personal history of nicotine dependence; Z90.49 Acquired absence of other specified parts of digestive tract; Z95.1 Presence of aortocoronary bypass graft; Z96.641 Presence of right artificial hip joint
CPT/HCPCS: 80048; 80053; 82948; 85025 91; 85027; 85610; 86900; 86901; 86920; 93005; 99281; 99285; J1815; J7030; P9016

== ENCOUNTER 2016-11-15 03:21 | Emergency (ER) | payer OTHER, BC ==
[~2016-11-15] VITALS: Ht 172.7 cm; Wt 84.3 kg
[~2016-11-15 03:21] MED LIST changes: +AMLODIPINE BESY10 MG PO; +ASCORBIC ACID500 MG PO; +COLACE100 MG PO; +DULCOLAX10 MG PR; +FERROUS SULFAT325 MG PO; +FLEET ENEMA-AD118 ML PR; +GABAPENTIN100 MG PO; +GLUTOSE 1537.5 GM PO; +MILK OF MAGN PO; +MIRTAZAPINE7.5 MG PO; +SYNTHROID75 MCG PO; +TRAMADOL HCL50 MG PO
[2016-11-15 05:04] LABS: EOSINOPHIL (%) 2.6 % (0-5); EOSINOPHIL COUNT 0.2 K/uL (0-0.3); HEMATOCRIT 32.5 % (38.0-50.0); IMMATURE GRANULOCYTE (%) 0.9 % (0.0-0.7); IMMATURE GRANULOCYTE COUNT 0.1 K/uL; LYMPHOCYTE COUNT 0.6 K/uL (1.0-2.8); MCH 30.4 PG (29.0-34.0); MCHC 31.4 G/DL (30.0-36.0); MEAN PLAT.VOLUME 10.2 uM^3 (9.0-12.4); MONOCYTE (%) 9.5 % (3-12); MONOCYTE COUNT 0.6 K/uL (0-0.8); NEUTROPHIL (%) 76.9 % (45-76); PLATELET COUNT 145 K/uL (156-360); RBC DIS.WIDTH-CV 17.3 % (11.8-14.6); RBC DIS.WIDTH-SD 61.2 % (39-53); RED BLOOD COUNT 3.36 M/uL (4.00-5.50); WHITE BLOOD COUNT 6.6 K/uL (4.1-10.2)
[2016-11-15 05:12] LABS: MCV 96.7 FL (86-99)
[2016-11-15 05:28] LABS: ADD MIUA? YES; BILIRUBIN NEGATIVE; BLOOD NEGATIVE; COLOR YELLOW ((YELLOW)); GLUCOSE (STRIP) NEGATIVE; KETONES NEGATIVE; LEUKOCYTES MODERATE; NITRITE NEGATIVE; PROTEIN (STRIP) 100; SPECIFIC GRAVITY 1.012 (1.000-1.030); UROBILINOGEN 0.2 MG/DL (0.2-1.0)
[2016-11-15 05:33] LABS: ANION GAP 13 MEQ/L (2-14); CHLORIDE 114 MEQ/L (99-109); POTASSIUM 3.7 MEQ/L (3.7-5.4); SAMPLE HEMOLYSIS CHECK 0; SAMPLE ICTERIC CHECK 0; SAMPLE LIPEMIA CHECK 0; SODIUM 147 MEQ/L (136-147)
[2016-11-15 05:38] LABS: GFR ESTIMATE (CALCULATED) 47 mL/min/; GLUCOSE 98 mg/dL (70-99); UREA NITROGEN (BUN) 27 mg/dL (9-23)
[2016-11-15 05:56] LABS: AMORPHOUS URATES CRYSTALS 3+; BACTERIA 2+ /HPF; CASTS NONE SEEN /LPF; CRYSTALS PRESENT; EPITHELIAL CELLS RARE /HPF; MUCUS RARE /LPF; RED BLOOD CELLS NONE SEEN /HPF (0-5); UCUL ADDED? YES; WHITE BLOOD CELLS 20-30 /HPF (0-5)
[2016-11-15] MEDS ORDERED: KEFLEX500 MG PO (06:09)
[2016-11-15 06:49] VITALS: BP 181/64
== END 2016-11-15 07:12 ==
LOC: EME → EDBD 03:21 → EME 03:21
PROVIDERS: Emergency Medicine
DX: F03.90 Unspecified dementia, unspecified severity, without behavioral disturbance, psychotic disturbance, mood disturbance, and anxiety (principal); N39.0 Urinary tract infection, site not specified; R45.1 Restlessness and agitation; K21.9 Gastro-esophageal reflux disease without esophagitis; E11.9 Type 2 diabetes mellitus without complications; E78.5 Hyperlipidemia, unspecified; I10 Essential (primary) hypertension; Z86.73 Personal history of transient ischemic attack (TIA), and cerebral infarction without residual deficits; Z95.1 Presence of aortocoronary bypass graft; Z87.891 Personal history of nicotine dependence; Z79.84 Long term (current) use of oral hypoglycemic drugs
CPT/HCPCS: 80048; 81003; 85025; 87086; 99281; 99285; J2060

== ENCOUNTER 2017-12-18 00:27 | Inpatient (IN) | payer OTHER, BC ==
[~2017-12-18] VITALS: Ht 177.8 cm; Wt 90.5 kg
[~2017-12-18 00:27] MED LIST changes: -AMLODIPINE BESY10 MG PO; +KEFLEX500 MG PO; +MIRTAZAPINE30 MG PO; -MIRTAZAPINE7.5 MG PO
[2017-12-18 01:41] LABS: HEMATOCRIT 29.6 % (38.0-50.0); HEMOGLOBIN 9.3 G/DL (12.5-16.6); MCH 34.2 PG (29.0-34.0); MCHC 31.4 G/DL (30.0-36.0); MCV 108.8 FL (86-99); PLATELET COUNT 110 K/uL (156-360); RBC DIS.WIDTH-SD 58.9 % (39-53); RED BLOOD COUNT 2.72 M/uL (4.00-5.50); WHITE BLOOD COUNT 7.5 K/uL (4.1-10.2)
[2017-12-18 01:46] LABS: APPEARANCE CLOUDY ((CLEAR)); BILIRUBIN NEGATIVE; BLOOD NEGATIVE; COLOR YELLOW ((YELLOW)); GLUCOSE (STRIP) 50; KETONES NEGATIVE; LEUKOCYTES NEGATIVE; NITRITE NEGATIVE; PROTEIN (STRIP) >=500; SPECIFIC GRAVITY 1.016 (1.000-1.030); UROBILINOGEN 0.2 MG/DL (0.2-1.0)
[2017-12-18 01:52] LABS: ALBUMIN 3.5 g/dL (3.2-4.8); CHLORIDE 119 mEq/L (99-109); POTASSIUM 4.5 mEq/L (3.7-5.4); SODIUM 149 mEq/L (136-147)
[2017-12-18 01:54] LABS: GLUCOSE 115 mg/dL (70-99); TOTAL PROTEIN 5.7 g/dL (6.4-8.3)
[2017-12-18 01:56] LABS: TOTAL BILIRUBIN 0.5 mg/dL (0.0-1.0)
[2017-12-18 01:58] LABS: ALKALINE PHOSPHATASE 72 IU/L (3-129); CREATININE 1.8 mg/dL (0.6-1.3); GFR ESTIMATE (CALCULATED) 38 mL/min/ (58.99-99999)
[2017-12-18 01:59] LABS: UREA NITROGEN (BUN) 46 mg/dL (9-23)
[2017-12-18 02:00] LABS: AST (GOT) 23 IU/L (2-34)
[2017-12-18 02:01] LABS: ALT (GPT) 16 IU/L (3-49); LIPASE 7 U/L (1.0-51.0)
[2017-12-18 02:19] LABS: BACTERIA 2+ /HPF; EPITHELIAL CELLS NONE SEEN /HPF; MUCUS NONE SEEN /LPF; RED BLOOD CELLS NONE SEEN /HPF (0-5); UCUL ADDED? YES; WHITE BLOOD CELLS NONE SEEN /HPF (0-5)
[2017-12-18 02:20] LABS: AMORPHOUS URATES CRYSTALS 3+
[2017-12-18 02:21] LABS: TROP-I INTERPRETATION NEGATIVE; TROPONIN-I 0.02 ng/mL (0.0-0.30)
[2017-12-18 05:42] VITALS: BP 112/72
[2017-12-18 07:29] VITALS: BP 120/60
[2017-12-18 11:14] VITALS: BP 149/67
[2017-12-18] MEDS ORDERED: XANAX0.25 MG PO (14:06)
[2017-12-18] MEDS ORDERED: CALCIUM PO (14:08)
[2017-12-18 16:59] VITALS: BP 135/62
[2017-12-18 23:40] VITALS: BP 147/82
[2017-12-19 06:17] LABS: CHLORIDE 118 MEQ/L (99-109); CREATININE 1.7 MG/DL (0.6-1.3); GFR ESTIMATE (CALCULATED) 41 mL/min/ (58.99-99999); GLUCOSE 145 mg/dL (70-99); POTASSIUM 4.9 MEQ/L (3.7-5.4); SODIUM 151 MEQ/L (136-147); UREA NITROGEN (BUN) 39 mg/dL (9-23)
[2017-12-19 11:53] VITALS: BP 157/81
[2017-12-20 07:38] VITALS: BP 140/84
[2017-12-20 12:17] VITALS: BP 138/80
[2017-12-20] MEDS ORDERED: MORPHINE CON20 MG/M1 PO (14:35)
[2017-12-20] MEDS ORDERED: ANASPAZ0.125 MG PO (14:35)
[2017-12-20] MEDS ORDERED: ATIVAN0.5 MG PO (14:35)
[2017-12-20] MEDS ORDERED: DECADRON4 M1 PO (18:07)
== END 2017-12-20 16:45 | disposition hospice, home (50) | DRG 54 ==
LOC: EME → EDBD 00:27 → EDOF 04:13 → ENRESERV 04:14 → 4SOUTH 05:30
PROVIDERS: Emergency Medicine; Hospitalist; Internal Medicine
DX: D49.6 Neoplasm of unspecified behavior of brain (principal); G93.6 Cerebral edema; E87.0 Hyperosmolality and hypernatremia; E86.0 Dehydration; N17.9 Acute kidney failure, unspecified; D61.818 Other pancytopenia; Z51.5 Encounter for palliative care; Z66 Do not resuscitate; I12.9 Hypertensive chronic kidney disease with stage 1 through stage 4 chronic kidney disease, or unspecified chronic kidney disease; E11.22 Type 2 diabetes mellitus with diabetic chronic kidney disease; N18.3 Chronic kidney disease, stage 3 (moderate); E03.9 Hypothyroidism, unspecified; E78.5 Hyperlipidemia, unspecified; G30.9 Alzheimer's disease, unspecified; F02.80 Dementia in other diseases classified elsewhere, unspecified severity, without behavioral disturbance, psychotic disturbance, mood disturbance, and anxiety; K21.9 Gastro-esophageal reflux disease without esophagitis; N40.0 Benign prostatic hyperplasia without lower urinary tract symptoms; R32 Unspecified urinary incontinence; N32.81 Overactive bladder; R29.6 Repeated falls; M10.9 Gout, unspecified; F32.9 Major depressive disorder, single episode, unspecified; Z95.1 Presence of aortocoronary bypass graft; E66.9 Obesity, unspecified; Z68.28 Body mass index [BMI] 28.0-28.9, adult; Z74.01 Bed confinement status; Z86.73 Personal history of transient ischemic attack (TIA), and cerebral infarction without residual deficits; Z87.891 Personal history of nicotine dependence; Z96.649 Presence of unspecified artificial hip joint
CPT/HCPCS: 70450; 71045; 72125; 80048; 80053; 81003; 82948; 83605; 83690; 83880; 84484; 85027; 87040; 87086; 93005; 94799; 99281; 99285; J1100; J1630; J1644; J2060; J3486; J7030; J8540